=== PATIENT | female | born 1955 | race Caucasian/White ===

== ENCOUNTER → 2019-01-28 | Outpatient (CLI) | payer OTHER ==
[~2019-01-28] MED LIST: ASP81CT PO; ASPI1TAB PO; CETI10TA20 PO; CYCL10TA9 PO; DULO60CA6 PO; GABA-486 PO; HYDR25TA4 PO; LISI10TA2 PO; LOVA10TA PO; METF-380 PO; MTP25TSR PO; OMEP20CA12 PO; PIOG15TA24 PO
--- NOTE | 2019-01-28 14:06 | Diagnostic Imaging Report ---
PROCEDURE: US Thyroid. TECHNIQUE: Multiple real-time grayscale images were obtained of the thyroid in various projections. INDICATION: Thyroid nodule. COMPARISON: Correlation is made with prior study from 02/16/2014. FINDINGS: Right lobe of the thyroid measures 3.8 x 2.0 x 1.6 cm and the left lobe measures 2.6 x 1.1 x 0.7 cm. Isthmus is 4 mm in thickness. The nodule in the midline within the isthmus measures 1.2 x 1.2 x 0.7 cm. This compares with 1.4 x 1.2 x 0.7 cm on prior. The lesion in the right lobe at the medial aspect of the isthmus measures 1.8 x 1.5 x 0.8 cm. This has increased in size over five years where it appears to measured approximately 5-6 mm. Additional smaller nodules in the right lobe are also noted. A nodule in the midportion of right lobe measures approximately 6 mm x 4 mm. Another nodule measures approximately 10 mm x 9 mm. Left lobe demonstrates homogeneous echotexture and is without discrete mass. IMPRESSION: Multiple right-sided thyroid nodules. There is an enlarging nodule in the right lobe at the isthmus when compared with study dating back to 2013 measuring up to 1.8 cm. No microcalcifications are seen. Fine needle aspiration could be performed. Dictated by: Dictated on workstation # [id number]
--- NOTE | 2019-01-28 15:07 | Diagnostic Imaging Report ---
PROCEDURE: MRI lumbar spine. TECHNIQUE: Multiplanar, multisequence MRI of the lumbar spine was performed without contrast. INDICATION: Low back pain and bilateral lower extremity numbness. FINDINGS: There appears to be a transitional lumbosacral vertebral body. For numbering purposes, the most inferior lumbar type vertebral body will be considered L5 in keeping with the numbering scheme used for MRI of the lumbar spine from 04/08/2007. Curvature and alignment of the lumbar spine is normal. Vertebral body heights are maintained. No geographic marrow lesion is seen apart from hemangiolipoma within L2 vertebral body. There is no acute compression fracture. There is mild disc desiccation but disc spaces are maintained. Conus is unremarkable at the T12-L1 level. T12-L1: Central canal and neural foramina are widely patent. L1-2: Central canal and neural foramina are widely patent. L2-3: There is ligamentous thickening and facet changes but central canal remains patent. No neural foraminal stenosis is seen. L3-4: Ligamentous thickening and hypertrophic facet changes are noted. This does create some trefoil configuration of the thecal sac. AP dimension of the canal maintained. There is narrowing of the lateral recesses bilaterally. There is also mild to moderate bilateral neural foraminal narrowing. L4-5: Ligamentous thickening and facet changes are noted. Central canal is widely patent. There is moderate left and mild right neural foraminal narrowing. L5-S1: Axial imaging through the L5-S1 level was not performed. No definite central canal or foraminal narrowing is seen. IMPRESSION: Lower lumbar spondylosis and facet arthropathy with lateral recess and neural foraminal narrowing described level by level above. No central canal stenosis is seen. Please see images for appropriate labeling due to transitional lumbosacral vertebral body. Dictated by: Dictated on workstation # [id number]
== END ==
LOC: RAD 12:49
PROVIDERS: ATTEND Nurse Practitioner Family
DX: M47.816 Spondylosis without myelopathy or radiculopathy, lumbar region (principal); M48.061 Spinal stenosis, lumbar region without neurogenic claudication; M46.96 Unspecified inflammatory spondylopathy, lumbar region; E04.2 Nontoxic multinodular goiter
CPT/HCPCS: 72148; 76536

== ENCOUNTER → 2019-02-18 | Outpatient (CLI) | payer OTHER ==
--- NOTE | 2019-02-18 15:11 | Diagnostic Imaging Report ---
INDICATION: Back pain and bilateral lower extremity numbness and pain. TECHNIQUE: Multiplanar, multisequence imaging of the thoracic spine was performed without contrast. FINDINGS: The curvature and alignment of the thoracic spine is normal. The vertebral body marrow signal is normal. No geographic marrow lesion or fracture is detected. Generalized degenerative disc disease is seen in the mid and lower thoracic spine with variable disc space narrowing and desiccation. Thoracic spinal cord demonstrates normal homogeneous signal intensity and normal morphology. No abnormal cord signal is identified. There is a left paramidline disc bulge T6-7 level, indenting the ventral thecal sac. However, no significant central canal or neural foraminal narrowing is seen. All other levels of the central canal is widely patent. The paraspinous tissues are unremarkable. IMPRESSION: Generalized thoracic spondylosis with small left paramidline disc bulge at T6-7. No central canal or neural foraminal stenosis is seen. No acute compression fracture is identified. Dictated by: Dictated on workstation # [id number]
== END ==
LOC: RAD 14:13
PROVIDERS: ATTEND Nurse Practitioner Family
DX: M47.814 Spondylosis without myelopathy or radiculopathy, thoracic region (principal); M51.24 Other intervertebral disc displacement, thoracic region
CPT/HCPCS: 72146